=== PATIENT | female | born 1955 | race Caucasian/White ===

== ENCOUNTER 2019-05-07 08:30 | Inpatient (IN) | payer OTHER ==
[2019-05-07] VITALS (10 sets, daily range): BP systolic 95–122; BP diastolic 39–69
[~2019-05-07] VITALS: Ht 160 cm; Wt 109.7 kg
[~2019-05-07 08:30] MED LIST: ASCO500T11 PO; ASPI-404 PO; CHOL1000 PO; CINN500C12 PO; GLIP10TA9 PO; IBUP800T24 PO; LOSA-39 PO; MELA5TAB11 PO; METO-169 PO; NIFE30TA76 PO; OMEP20TA PO; OXYB5TAB61 PO; SIMV10TA84 PO; TRAM50TA2 PO; VITA400T4 PO; [UNRECOGNIZED DRUG - CODE] PO
[2019-05-07] MEDS ORDERED: MORPHINE SULF(PF) 0.5MG/ML 10ML VIAL ONE ×2 (09:12→09:54)
[2019-05-07] MEDS ORDERED: MIDAZOLAM HCL 1MG/1ML-2 ML VIAL ONE ×2 (09:13→10:52)
[2019-05-07] MEDS ORDERED: ONDANSETRON HCL 4 MG/2 ML VIAL ONE (09:13)
[2019-05-07] MEDS ORDERED: PROPOFOL 10 MG/ML 20 ML IV ONE (09:13)
[2019-05-07] MEDS ORDERED: fentaNYL CITRATE 100 MCG/2 ML VL ONE (09:13)
[2019-05-07] MEDS ORDERED: SODIUM CHLORIDE LOCK 10 ML ONE (09:13)
[2019-05-07] MEDS ORDERED: EPINEPHrine HCL 1 MG/1 ML AMP ONE (09:13)
[2019-05-07] MEDS ORDERED: LIDOCAINE 1% (LOCAL ANESTH.) PF 5ml SDV ONE (09:13)
[2019-05-07] MEDS ORDERED: TETRACAINE 1% INJ 2 ML VIAL IJ ONE (09:20)
[2019-05-07] MEDS ORDERED: CELECOXIB 100 MG CAP PO ONE (09:45)
[2019-05-07] MEDS ORDERED: ACETAMINOPHEN IV 1000 MG/100ML (10MG/ML) IV ONE (09:45)
[2019-05-07] MEDS ORDERED: ceFAZolin 1GM 2 GM in D5W 5% 100 ML IV ONE (09:45)
[2019-05-07] MEDS ORDERED: BUPIVACAINE W/ EPINEPH 0.25% INJ 50ML MDV ONE (09:53)
[2019-05-07] MEDS ORDERED: TRANEXAMIC ACID 20 ML ONE (09:53)
[2019-05-07] MEDS ORDERED: KETOROLAC TROMETH 30 MG/ML 1ML VIAL ONE (09:55)
[2019-05-07] MEDS ORDERED: VANCOMYCIN HCL 1000 MG VL ONE (09:56)
[2019-05-07] MEDS: PREGABALIN CAPSULE 75 MG CAP PO SCH ×3 (10:00→21:59)
[2019-05-07] MEDS ORDERED: ceFAZolin 1GM/50ML 100 ML IV ONE (10:02)
[2019-05-07] MEDS ORDERED: ACCU-CHEK COMFORT CURVE STRIP VI ONE (11:00)
[2019-05-07] MEDS ORDERED: HYDROmorphone HCL 2 MG/ML VL IV PRN (11:00)
[2019-05-07] MEDS ORDERED: KETOROLAC TROMETH 30 MG/ML 1ML VIAL IV ONE (11:00)
[2019-05-07] MEDS ORDERED: NALOXONE HCL 0.4 MG/ML VIAL IV PRN (11:00)
[2019-05-07] MEDS ORDERED: fentaNYL CITRATE 100 MCG/2 ML VL IV PRN (11:00)
[2019-05-07] MEDS ORDERED: METOCLOPRAMIDE HCL 5MG/ml INJ 2ml VIAL IV PRN (11:00)
[2019-05-07] MEDS ORDERED: diphenhdrAMINE HCL 50 MG/1 ML VL IV PRN (11:00)
[2019-05-07] MEDS: LACTATED RINGER'S 1,000 ML IV SCH ×2 (12:33→21:56)
[2019-05-07] MEDS ORDERED: MORPHINE SULFATE 4 MG/ML SYR/VIAL IV PRN (12:45)
[2019-05-07] MEDS ORDERED: OXYCODONE W/ ACETAMINOPHEN 5/325MG TABLET PO PRN ×2 (12:45→13:00)
[2019-05-07] MEDS ORDERED: ACETAMINOPHEN 325 MG TAB PO PRN (12:45)
[2019-05-07] MEDS ORDERED: ONDANSETRON HCL 4 MG/2 ML VIAL IV PRN (12:45)
[2019-05-07] MEDS ORDERED: DEXTROSE (50%) 50ML SYRG IV PRN (12:45)
--- NOTE | 2019-05-07 14:00 | NUR ---
Family at bedside.
--- NOTE | 2019-05-07 14:00 | NUR ---
Fredy from Ortho not here today for patient's CPM as per OR/Surgery.
--- NOTE | 2019-05-07 14:00 | NUR ---
Med-Surg admit from OR/Surgery EVIEYOSVANY admitted to Med-Surg unit after SBAR received. Patient oriented to Eleni Smith RN, unit, room, bed, and unit policies regarding patient care and visiting hours. Patient placed on bedside oxygen at 3 LPM, weighed by bed scale and encouraged to call if she needs something. All questions and concerns addressed, patient verbalized understanding. Note: Patient received Duramorph at OR, will require Tele/Pulse Ox monitoring for 24 hours.
--- NOTE | 2019-05-07 14:15 | NUR ---
SCD on right leg hooked on SCD machine.
--- NOTE | 2019-05-07 14:27 | NUR ---
T = 97.4 F, P = 52, RR = 18, BP = 122/68, O2 Sat = 97% on O2 at 3 LPM. Telemetry #54 reading at 47.
[2019-05-07] MEDS: SODIUM CHLOR 0.9% PF (SALINE LOCK) 10ML VIAL/SYR IV SCH ×2 (14:41→21:55)
[2019-05-07] MEDS: ceFAZolin 1GM 2 GM in D5W 5% 100 ML IV SCH ×2 (14:41→21:54)
--- NOTE | 2019-05-07 15:27 | NUR ---
BP = 100/54, P = 55, RR = 18, O2 Sat = 100% on O2 at 3 LPM.
[2019-05-07] MEDS: glipiZIDE 5 MG TAB PO SCH (17:45)
[2019-05-07] MEDS: InsuLIN REG 1unit/0.01ml Soln (100units/ml) SC SCH ×2 (17:47→22:06)
[2019-05-07] MEDS: ACCU-CHEK COMFORT CURVE STRIP VI SCH ×2 (17:48→21:55)
--- NOTE | 2019-05-07 18:41 | NUR ---
Zofran Inj given for nausea. Family at bedside.
--- NOTE | 2019-05-07 20:00 | NUR ---
Opening Shift Note Assumed care of patient, awake and alert. No S/S of distress/SOB or pain. patient is bradycardic 40-60. placed patient on LR@100 patient becomes hypotensive. and patient still sleepy from surgery. Instructed on POC and to call for assist PRN, will continue to monitor for changes Q1hr and PRN.
[2019-05-07] MEDS: MELATONIN 10 MG PO SCH (21:55)
[2019-05-07] MEDS: NIFEdipine ER 30 MG TAB PO SCH (21:55)
[2019-05-07] MEDS: CHOLECALCIFEROL (VITD3) 1,000 UNIT TAB PO SCH (22:05)
[2019-05-07] MEDS: DOCUSATE SOD 100 MG CAP PO SCH (22:05)
[2019-05-07] MEDS: OXYBUTYNIN CHL 5 MG TAB PO SCH (22:06)
[2019-05-07] MEDS: ATORVASTATIN 20 MG TAB PO SCH (22:06)
[2019-05-08] VITALS (14 sets, daily range): BP systolic 89–160; BP diastolic 40–78
[2019-05-08] MEDS: traMADol HCL 50 MG TAB PO PRN ×3 (04:22→17:02)
[2019-05-08] MEDS: SODIUM CHLOR 0.9% PF (SALINE LOCK) 10ML VIAL/SYR IV SCH ×3 (05:11→21:48)
[2019-05-08] MEDS: ACCU-CHEK COMFORT CURVE STRIP VI SCH ×4 (05:14→21:53)
[2019-05-08] MEDS: ceFAZolin 1GM 2 GM in D5W 5% 100 ML IV SCH (05:29)
[2019-05-08] MEDS: InsuLIN REG 1unit/0.01ml Soln (100units/ml) SC SCH ×4 (05:54→22:05)
[2019-05-08] MEDS: glipiZIDE 5 MG TAB PO SCH ×2 (05:54→17:05)
[2019-05-08] MEDS: LACTATED RINGER'S 1,000 ML IV SCH ×2 (05:55→18:21)
--- NOTE | 2019-05-08 07:19 | NUR ---
BLURRED VISION PATIENT C/O OF BLURRED VISION. PATIENT LOOKS INTO INDIVIDUAL EYES WITH NO BLURRED VISION EVEN WITH GLASSES. BUT WHEN PATIENT SEES THRU BOTH EYE WITHOUT AND WITHOUT GLASSES STILL HAS BLURRED VISION. PATIENT STATES SHE NOTICED HER VISION CHANGE LAST NIGHT WHILE FAMILY AT BEDSIDE IN ROOM BUT DID NOT MENTION THE VISION CHANGE. PATIENT HAS NO CHANGE IN FINE MOTOR SKILLS EXCEPT WEAKNESS TO OPERATIVE LEG. PATIENT DENIES AND NUMBNESS OR TINGLING. DR. MUNOZ CALLED BUT ONCALL DR GARAY ANSWERING CALLS INFORMED HIM RECEIVED ORDER FOR STAT HEAD CT WITHOUT CONTRAST. TORBO.
--- NOTE | 2019-05-08 07:30 | NUR ---
Patient off unit at this time. At Radiology.
[2019-05-08 07:43] LABS: Hematocrit 36.4 % (36.0-46.0); Hemoglobin 12.4 g/dL (12.2-16.2)
[2019-05-08 08:05] LABS: Potassium 4.3 mmol/L (3.5-5.1)
[2019-05-08 08:10] LABS: Albumin 3.1 g/dL (3.4-5.0); BUN/Creatinine Ratio 20.9; Calcium 8.3 mg/dL (8.5-10.1)
[2019-05-08 08:14] LABS: Bilirubin, Total 0.5 mg/dL (0.2-1.0); Total Protein 6.2 g/dL (6.4-8.2)
--- NOTE | 2019-05-08 08:35 | NUR ---
Tim from Physical Therapy applied the CPM on patient's left knee.
--- NOTE | 2019-05-08 09:24 | NUR ---
BP = 131/46, P = 64, RR = 18, O2 Sat = 99% on O2 at 4 LPM. Sister at bedside.
[2019-05-08] MEDS: OMEGA 3 FATTY ACIDS PO SCH (09:32)
[2019-05-08] MEDS: CHOLECALCIFEROL (VITD3) 1,000 UNIT TAB PO SCH ×2 (09:39→21:51)
[2019-05-08] MEDS: ENOXAPARIN SOD 40 MG/0.4 ML SYRINGE SC SCH ×2 (09:39→21:51)
--- NOTE | 2019-05-08 09:39 | NUR ---
Tylenol PO given for left knee pain level at 5/10 as stated by the patient.
[2019-05-08] MEDS: PANTOPRAZOLE 40 MG TAB PO SCH (09:41)
[2019-05-08] MEDS: ASCORBIC ACID 500 MG TAB PO SCH (09:41)
[2019-05-08] MEDS: LOSARTAN POTASSIUM 50 MG TAB PO SCH (09:41)
[2019-05-08] MEDS: OXYBUTYNIN CHL 5 MG TAB PO SCH ×2 (09:41→21:52)
[2019-05-08] MEDS: DOCUSATE SOD 100 MG CAP PO SCH ×2 (09:41→21:52)
[2019-05-08] MEDS: PREGABALIN CAPSULE 75 MG CAP PO SCH ×2 (09:42→21:51)
[2019-05-08] MEDS ORDERED: METOPROLOL SUCCINATE XL 50 MG TAB PO SCH (10:00)
--- NOTE | 2019-05-08 10:40 | NUR ---
Patient had physical therapy, stated her left knee in pain. Ultram PO given for pain.
--- NOTE | 2019-05-08 13:38 | NUR ---
Dr. Clements called regarding the CT Scan results. MD made aware of the results, patient has no complaints of blurred vision at this time. As stated by the patient, she was seen by Dr. Kellogg today, that the doctor recommended transfer to [facility] for rehab tomorrow. Patient has left knee arthroplasty done yesterday as per Dr. Kellogg. Dr. Clements to come over to see the patient and will put in discharge orders.
--- NOTE | 2019-05-08 15:38 | NUR ---
Dr. Magallanes at bedside.
[2019-05-08 16:14] LABS: Cholesterol 146 mg/dL (< 200); HDL Cholesterol 40 mg/dL (40-59); LDL Cholesterol 91 mg/dL (< 100); Triglycerides 189 mg/dL (< 150)
--- NOTE | 2019-05-08 17:00 | NUR ---
assessment Patient is a 63 year old female who is alert and oriented. Patients cognitive abilities are intact. Prior to admission patient lived home with family and functioned independently. Patient informed me she is able to care for her own ADLs. Per patient she has been admitted for left knee replacement. Per patient she will be going to [facility] on discharge. Patients PCP is Dr Yoon. I informed patient she has a right to speak to a high school social studies teacher regarding all care. I informed patient she has a right to participate in any and all discharge planning. Patient does not have a POA and advanced directive. I have offered patient information on POA and advanced directives. I informed the patient the advantages and benefits of having an Advanced Directive. Patient verbalized understanding and agreed to discharge plan. Addendum: 05/08/19 at 1701 by Nivia CARDENAS Amended: Links added.
--- NOTE | 2019-05-08 17:15 | NUR ---
Applied CPM on patient's left knee. Family at bedside.
--- NOTE | 2019-05-08 17:20 | NUR ---
Patient stated she has twitching on her hands. Will inform the MD.
--- NOTE | 2019-05-08 18:05 | NUR ---
Pageloreto [id number] Yusuf Ramirez
--- NOTE | 2019-05-08 18:10 | NUR ---
Hospitalist cotton presser Yusuf Gotti called back, made aware patient has order for MRI, patient is claustrophobic but there's no order for Ativan. SULLY Ramirez ordered Ativan Inj 1 mg one time for MRI.
[2019-05-08] MEDS ORDERED: LORazepam 2MG/ML-1ML VIAL IV ONE (18:15)
--- NOTE | 2019-05-08 18:27 | NUR ---
Called Dr. Magallanes. made aware patient is at MRI at this time, patient complained of hand/finger twitching this afternoon after he left upon seeing the patient. Dr. Clements said let's wait for the MRI results first.
[2019-05-08] MEDS: MELATONIN 10 MG PO SCH (21:47)
[2019-05-08] MEDS: NIFEdipine ER 30 MG TAB PO SCH (21:52)
[2019-05-08] MEDS: ATORVASTATIN 20 MG TAB PO SCH (21:52)
[2019-05-09] MEDS: SODIUM CHLOR 0.9% PF (SALINE LOCK) 10ML VIAL/SYR IV SCH ×2 (04:06→13:10)
[2019-05-09 05:00] VITALS: BP 143/108
[2019-05-09] MEDS: InsuLIN REG 1unit/0.01ml Soln (100units/ml) SC SCH ×2 (05:33→13:10)
[2019-05-09] MEDS: glipiZIDE 5 MG TAB PO SCH (05:33)
[2019-05-09] MEDS: ACCU-CHEK COMFORT CURVE STRIP VI SCH ×2 (05:33→13:10)
--- NOTE | 2019-05-09 07:50 | NUR ---
Dr. Kellogg came over. said patient is okay for SNF placement as per Ortho, change the left knee dressing as ordered.
[2019-05-09 08:03] LABS: Hematocrit 38.4 % (36.0-46.0); Hemoglobin 12.9 g/dL (12.2-16.2)
[2019-05-09 09:00] VITALS: BP 153/77
--- NOTE | 2019-05-09 09:10 | NUR ---
Patient walking on the hallway using a walker with Tim from Physical Therapy.
[2019-05-09] MEDS: OMEGA 3 FATTY ACIDS PO SCH (10:00)
[2019-05-09] MEDS: traMADol HCL 50 MG TAB PO PRN (10:10)
[2019-05-09] MEDS: PANTOPRAZOLE 40 MG TAB PO SCH (10:10)
[2019-05-09] MEDS: OXYBUTYNIN CHL 5 MG TAB PO SCH (10:10)
[2019-05-09] MEDS: CHOLECALCIFEROL (VITD3) 1,000 UNIT TAB PO SCH (10:10)
[2019-05-09] MEDS: PREGABALIN CAPSULE 75 MG CAP PO SCH (10:10)
--- NOTE | 2019-05-09 10:10 | NUR ---
Patient stated her left knee pain level at 6/10 at this time. Ultram PO given for pain as ordered.
[2019-05-09] MEDS: DOCUSATE SOD 100 MG CAP PO SCH (10:11)
[2019-05-09] MEDS: ENOXAPARIN SOD 40 MG/0.4 ML SYRINGE SC SCH (10:11)
[2019-05-09] MEDS: ASCORBIC ACID 500 MG TAB PO SCH (10:11)
[2019-05-09] MEDS: LOSARTAN POTASSIUM 50 MG TAB PO SCH (10:11)
--- NOTE | 2019-05-09 11:29 | NUR ---
Rosamaria from [facility] ([phone]) called that patient got accepted at [facility] ([phone]) Room 508 Bed A, admitting MD is Dr. Melendez, [facility] to picker tender helper the patient. Will call Rosamaria after I call Dr. Spencer what medications the patient will continue to take at [facility].
--- NOTE | 2019-05-09 12:10 | NUR ---
Called Eleno Juan MD said he has seen the results of the CT Scan and MRI, patient did not have a stroke, patient okay for transfer to SNF for rehab, continue with the medications as ordered including Lovenox SC except IV medications, he will give new orders when patient is transferred to [facility], follow up with Rosamaria for the transportation, proceed with the discharge.
--- NOTE | 2019-05-09 12:18 | NUR ---
Called Rosamaria tomas [facility] ([phone]) that Dr. Spencer ordered to proceed with discharge today at [facility]. Rosamaria said she will set up the transportation with [facility], ETA at 4:00 pm today to picker feeder the patient.
[2019-05-09 13:00] VITALS: BP 134/81
--- NOTE | 2019-05-09 14:20 | NUR ---
[facility] called that they're coming over at 3:00 pm. [facility] made aware that their ETA is at 4:00 pm as per Glory.
--- NOTE | 2019-05-09 14:40 | NUR ---
Report given to Olivia at [facility]. Olivia made aware that patient has complaints of blurred vision and hand twitching, CT Scan and MRI came out negative, patient did not have a stroke as per Dr. Spencer, resume medications except IV medications. [facility] to pickling machine operator the patient around 3:00 pm today.
--- NOTE | 2019-05-09 14:45 | NUR ---
Called Rosamaria tomas [facility] regarding CPM. Rosamaria said they will send the CPM machine for the patient to [facility].
--- NOTE | 2019-05-09 15:22 | NUR ---
Discharge instructions given as ordered. Encourage to follow up with PMD as instructed. All questions and concerns addressed. Patient verbalized understanding. Medication reconciliation form completed and copy endorsed to [facility] personnel to give to [facility]. IV removed with catheter intact, pressure dressing applied. Telemetry unit returned to ICU. Patient taken to vehicle via gurney with all personal belongings, [facility]. No distress noted at time of departure.
--- NOTE | 2019-05-09 16:56 | NUR ---
Discharge planning per consult, patient has orders to dc to SNF. Referral sent to [facility], placed a follow up call, spoke to Dave and was advised that they will accept this patient into room [address]. Transportation was arranged with Travis Turner and she is scheduled to be picked up at approximately 4:30pm. Addendum: 05/09/19 at 1658 by IZABELLA LOMAX Amended: Links added.
== END 2019-05-09 15:22 | DRG 470 ==
LOC: SUR 08:30 → TELE-WESTW 13:57
PROVIDERS: ADMIT Orthopaedic Surgery Adult Reconstructive Orthopaedic Surgery; ATTEND Orthopaedic Surgery Adult Reconstructive Orthopaedic Surgery
PROC: 0SRD0J9 Replacement of Left Knee Joint with Synthetic Substitute, Cemented, Open Approach (ICD-10-PCS; principal; 2019-05-07 10:11)
DX: M17.12 Unilateral primary osteoarthritis, left knee (principal); H53.2 Diplopia; I10 Essential (primary) hypertension; E78.5 Hyperlipidemia, unspecified; E11.40 Type 2 diabetes mellitus with diabetic neuropathy, unspecified; Z79.899 Other long term (current) drug therapy
CPT/HCPCS: 36415; 70450; 70551; 73562; 80053; 80061; 82962; 85014; 85018; 86850; 86900; 86901; 93886; 97116; 97530; G0378; J0131; J0171; J0690; J1815; J1885; J2250; J2405; J2704; J7060

== ENCOUNTER 2021-05-08 20:11 | Emergency (ER) | payer OTHER ==
[~2021-05-08] VITALS: Ht 160 cm; Wt 104.3 kg
[~2021-05-08 20:11] MED LIST changes: -ASPI-404 PO; +CHOL-17 PO; -CHOL1000 PO; -IBUP800T24 PO; +IBUP800T27 PO; -METO-169 PO; +METO-289 PO; +NIFE1TAB31 PO; -NIFE30TA76 PO
[2021-05-08 20:12] VITALS: BP 149/69
== END 2021-05-08 21:46 | disposition left against medical advice (07) ==
LOC: ER 20:12
DX: R42 Dizziness and giddiness (principal); R11.2 Nausea with vomiting, unspecified; Z53.21 Procedure and treatment not carried out due to patient leaving prior to being seen by health care provider
CPT/HCPCS: 93005

== ENCOUNTER 2024-05-25 15:59 | Emergency (ER) | payer OTHER ==
[~2024-05-25] VITALS: Ht 160 cm; Wt 100.0 kg
[~2024-05-25 15:59] MED LIST changes: +IBUP-1456 PO; -IBUP800T27 PO; -LOSA-39 PO; +LOSA-535 PO; +OXYB5TAB14 PO; -OXYB5TAB61 PO; +SIMV10TA20 PO; -SIMV10TA84 PO
[2024-05-25] MEDS: ONDANSETRON ODT 4 MG TAB PO ONE ×2 (16:51→21:00)
[2024-05-25] MEDS: ACETAMINOPHEN 500 MG TAB PO ONE (16:51)
[2024-05-25 16:57] LABS: Basophils # (auto) 0 10 ^3/uL (0-0.2); Basophils % (auto) 0.2 % (0.0-2.0); Eosinophils # (auto) 0 10 ^3/uL (0-0.8); Eosinophils % (auto) 0.2 % (0.0-7.0); Hematocrit 42.2 % (36.0-46.0); Hemoglobin 14.5 g/dL (12.2-16.2); Lymphocytes # (auto) 0.7 10 ^3/uL (0.4-5.4); Lymphocytes % (auto) 5.4 % (10.0-50.0); Mean Corpuscular Hemoglobin 30.8 pg (28.0-32.0); Mean Corpuscular Hgb Conc. 34.3 g/dL (32.0-36.0); Mean Corpuscular Volume 89.7 fL (80.0-100.0); Monocytes # (auto) 0.9 10 ^3/uL (0-1.3); Monocytes % (auto) 6.9 % (0.0-12.0); Neutrophils # (auto) 10.9 10 ^3/uL (1.6-8.6); Neutrophils % (auto) 87.3 % (37.0-80.0); Nucleated Red Blood Cells % 0.2 %; Platelet Count (auto) 143 10^3/uL (140-450); Red Blood Cells 4.71 10^6/uL (4.0-5.20); Red Cell Distribution Width 13.5 % (11.8-14.3); White Blood Cell 12.5 10^3/uL (4.4-10.8)
[2024-05-25 17:20] LABS: Alanine Aminotransferase 27 U/L (7-40); Albumin 4.4 g/dL (3.2-4.8); Alkaline Phosphatase 81 U/L (46-116); Anion Gap 12 (5-15); Aspartate Aminotransferase 44 U/L (13-40); BUN/Creatinine Ratio 13.9 (10.0-20.0); Bilirubin, Total 1.5 mg/dL (0.2-1.0); Blood Urea Nitrogen 11 mg/dL (9-23); Calcium 9.1 mg/dL (8.7-10.4); Carbon Dioxide 23 mmol/L (20-31); Chloride 104 mmol/L (98-107); Glucose 176 mg/dL (74-106); Lipase 21 U/L (12-53); Potassium 3.5 mmol/L (3.5-5.1); Sodium 139 mmol/L (136-145); Total Protein 6.6 g/dL (5.7-8.2)
[2024-05-25 21:03] VITALS: BP 126/63; PULSE 81; RESP 18; TEMP 98.6; O2SAT 95
[2024-05-25 21:04] LABS: Urine Bacteria MOD /hpf (None Seen); Urine Blood 1+ /uL (Negative); Urine Clarity Turbid (Clear); Urine Color Light-Orange (Yellow); Urine Hyaline Cast FEW /lpf (0 - 2); Urine Mucus FEW (None Seen); Urine Protein, UAD 2+ (Negative); Urine Urobilinogen Normal (Negative); Urine WBC 244 /hpf (0 - 5)
[2024-05-25] MEDS ORDERED: CIPR-173 PO (22:02)
[2024-05-25] MEDS ORDERED: ZOFR4T PO (22:02)
[2024-05-25] MEDS ORDERED: ACET500T58 PO (22:02)
[2024-05-25] MEDS: CIPROFLOXACIN HCL 500 MG TAB PO ONE (22:20)
== END 2024-05-25 22:25 | disposition home or self-care (01) ==
LOC: ER 15:59 → EDBD 15:59 → ER 22:22
DX: N39.0 Urinary tract infection, site not specified (principal); R41.82 Altered mental status, unspecified; Z79.84 Long term (current) use of oral hypoglycemic drugs; Z79.899 Other long term (current) drug therapy
CPT/HCPCS: 36415; 70450; 80053; 81001; 83605; 83690; 83880; 84484; 85025; 99284; Q0162